=== PATIENT | male | born 1960 | race Caucasian/White ===

== ENCOUNTER → 2018-02-01 | Outpatient (CLI) | payer BC ==
[~2018-02-01] MED LIST: Flomax0.4 MG PO; LISI5 PO; Percocet 5-3251 EACH PO; Zofran Odt4 MG SL
== END | disposition home or self-care (01) ==
LOC: LAB SHORT 11:43 → PLD 11:43
DX: D48.5 Neoplasm of uncertain behavior of skin (principal)
CPT/HCPCS: 88305

== ENCOUNTER 2019-12-07 08:30 | Day surgery (SDC) | payer BC ==
[~2019-12-07] VITALS: Ht 182.9 cm; Wt 96.8 kg
== END 2019-12-07 10:31 | disposition home or self-care (01) ==
LOC: ORSCSDS 08:30
PROVIDERS: Surgery
PROC: 0DBH8ZX Excision of Cecum, Via Natural or Artificial Opening Endoscopic, Diagnostic (ICD-10-PCS; principal; 2019-12-07 09:45)
DX: Z12.11 Encounter for screening for malignant neoplasm of colon (principal); Z80.0 Family history of malignant neoplasm of digestive organs; D12.0 Benign neoplasm of cecum; E66.9 Obesity, unspecified; Z68.30 Body mass index [BMI] 30.0-30.9, adult; Z79.82 Long term (current) use of aspirin
CPT/HCPCS: 88305; J2704; J7120

== ENCOUNTER → 2020-07-17 | Outpatient (CLI) | payer BC | END | disposition home or self-care (01) | LOC: PLD 12:29 → LAB SHORT 12:29 | DX: C44.212 Basal cell carcinoma of skin of right ear and external auricular canal (principal) | CPT/HCPCS: 88305 ==

== ENCOUNTER → 2021-03-04 | Outpatient (CLI) | payer BC | LOC: LAB SHORT 10:57 → LAB 10:57 | DX: D48.5 Neoplasm of uncertain behavior of skin (principal); C44.222 Squamous cell carcinoma of skin of right ear and external auricular canal | CPT/HCPCS: 88305 ==

== ENCOUNTER → 2021-04-15 | Outpatient (CLI) | payer BC | LOC: LAB 12:26 → LAB SHORT 12:26 | DX: C44.222 Squamous cell carcinoma of skin of right ear and external auricular canal (principal); Z88.8 Allergy status to other drugs, medicaments and biological substances | CPT/HCPCS: 88305 ==

== ENCOUNTER 2024-11-02 08:07 | Day surgery (SDC) | payer OTHER ==
[~2024-11-02] VITALS: Ht 182.9 cm; Wt 92.6 kg
[~2024-11-02 08:07] MED LIST changes: +Lactated Ringer's 1,000 ML IV ONE; +propofoL 50 ML IV ONE
[2024-11-02] MEDS ORDERED: ALEVE220 MG (08:24)
[2024-11-02] MEDS ORDERED: IBUP200 (08:24)
[2024-11-02] MEDS ORDERED: Lactated Ringer's 1,000 ML IV ONE (09:09)
[2024-11-02 10:24] VITALS: BP 112/77
== END 2024-11-02 10:25 | disposition home or self-care (01) ==
LOC: ORSCSDS 08:07
PROVIDERS: Surgery
PROC: 0DBN8ZX Excision of Sigmoid Colon, Via Natural or Artificial Opening Endoscopic, Diagnostic (ICD-10-PCS; principal; 2024-11-02 09:30)
PROC: 0DBH8ZX Excision of Cecum, Via Natural or Artificial Opening Endoscopic, Diagnostic (ICD-10-PCS; principal; 2024-11-02 09:30)
DX: Z12.11 Encounter for screening for malignant neoplasm of colon (principal); Z86.0100 Personal history of colon polyps, unspecified; D12.0 Benign neoplasm of cecum; D12.5 Benign neoplasm of sigmoid colon; K64.0 First degree hemorrhoids; I10 Essential (primary) hypertension; E78.5 Hyperlipidemia, unspecified; G47.33 Obstructive sleep apnea (adult) (pediatric); F17.220 Nicotine dependence, chewing tobacco, uncomplicated
CPT/HCPCS: 88305; J2704; J7120